=== PATIENT | female | born 1970 | race Caucasian/White ===

== ENCOUNTER 2016-10-10 14:36 | Emergency (ER) | payer SELFPAY ==
--- NOTE | 2016-10-10 15:25 | ER Document Report ---
HPI - HPI Pain Level: 2 Notes: Patient is a 46-year-old female presents the ED complaining of a laceration on her right medial fifth digit that occurred just prior to arrival today. Patient states that she was moving stuff out of a truck when she cut her finger on a sharp tool inside of a box. Patient states that she did have a tetanus 2 years ago. Patient states that she still able to move her finger and denies any numbness or tingling distally. Patient did clean it with alcohol. Patient has allergies to codeine and doxycycline. Patient only takes Paxil daily for her medications. She is a past medical history significant for anxiety/ depression, asthma. No other concerns or complaints at this time. Patient denies any MRSA history. Denies any headache, fever, URI, chest pain, palpitations, cough, shortness of breath, abdominal pain, nausea/vomiting with diarrhea, muscle paralysis/weakness, numbness/tingling, rash - ROS Notes: REVIEW OF SYSTEMS: CONSTITUTIONAL : Denies fever, chills, or sweats. Denies recent illness. EENT: Denies eye, ear, throat, or mouth pain or symptoms. Denies nasal or sinus congestion or discharge. Denies throat, tongue, or mouth swelling or difficulty swallowing. CARDIOVASCULAR: Denies chest pain. Denies palpitations or racing or irregular heart beat. Denies ankle edema. RESPIRATORY: Denies cough, cold, or chest congestion. Denies shortness of breath, difficulty breathing, or wheezing. GASTROINTESTINAL: Denies abdominal pain or distention. Denies nausea, vomiting , or diarrhea. Denies blood in vomitus, stools, or per rectum. Denies black, tarry stools. Denies constipation. GENITOURINARY: Denies difficulty urinating, painful urination, burning, frequency, blood in urine, or discharge. MUSCULOSKELETAL: Denies back or neck pain or stiffness. Denies joint pain or swelling. SKIN: see hpi NEUROLOGICAL: Denies confusion or altered mental status. Denies passing out or loss of consciousness. Denies dizziness or lightheadedness. Denies headache. Denies weakness or paralysis or loss of use of either side. Denies problems with gait or speech. Denies sensory loss, numbness, or tingling. Denies seizures. PSYCHIATRIC: Denies anxiety or stress. Denies depression, suicidal ideation, or homicidal ideation. ALL OTHER SYSTEMS REVIEWED AND NEGATIVE. Dictation was performed using [employer] voice recognition software - REPRODUCTIVE Reproductive: DENIES: : - DERM Skin Color: Normal Past Medical History - Social History Smoking Status: Never Smoker Family History: Reviewed & Not Pertinent Patient has suicidal ideation: No Patient has homicidal ideation: No Pulmonary Medical History: Reports: Hx Asthma Renal/ Medical History: Denies: Hx Peritoneal Dialysis Past Surgical History: Reports: Hx Cholecystectomy - Immunizations Hx Diphtheria, Pertussis, Tetanus Vaccination: Yes Vertical Provider Document - CONSTITUTIONAL Agree With Documented VS: Yes Notes: PHYSICAL EXAMINATION: GENERAL: Well-appearing, well-nourished and in no acute distress. LUNGS: Breath sounds clear to auscultation bilaterally and equal. No wheezes rales or rhonchi. HEART: Regular rate and rhythm without murmurs, rubs, gallops. Musculoskeletal: Rt 5th digit: FROM to passive/active. Strength 5+/5. Extremities: No cyanosis, clubbing, or edema b/l. Peripheral pulses 2+. Capillary refill less than 3 seconds. NEUROLOGICAL: Cranial nerves grossly intact. Normal speech, normal gait. Normal sensory, motor exams PSYCH: Normal mood, normal affect. SKIN: Rt 5th digit: + superficial irregular lac approx 1cm in length. Not deep or large separation. Minimally tender. N/V intact distal. Good perfusion to finger. No purulent discharge or erythema noted. - INFECTION CONTROL TRAVEL OUTSIDE OF THE [place] IN LAST 30 DAYS: No - RESPIRATORY O2 Sat by Pulse Oximetry: 99 Course - Re-evaluation Re-evalutation: 10/10/16 16:00 Patient is an afebrile, well-hydrated, 46-year-old female presents the ED with a superficial finger laceration to her right fifth lateral digit. Vitals are stable. PE otherwise unremarkable for any focal neurological or vascular deficits. No sutures required for this laceration. Wound was irrigated thoroughly with saline and cleansed with Shur-Clens. Appropriate approximation of the edges was successfully completed utilizing Steri-Strips and benzoin, while leaving a very small gap for any discharge. Wound dressing with bacitracin performed thereafter. Finger was then placed in a splint she is to utilize until the wound heals approximately 7-10 days. Extra Steri-Strips were provided to the patient to utilize as directed she had a Steri-Strip come off. Wound instructions otherwise as reviewed. Recheck with her PCM in 2-3 days. I will give her reflected Keflex to take as directed. Her tetanus was reported to be up-to-date within the last 2 years. Return to the ED with any worsening/ concerning symptoms as reviewed in discharge. Patient is in agreement. - Vital Signs Vital signs: Temp Pulse Resp BP Pulse Ox 98.2 F 93 18 144/87 H 99 10/10/16 14:42 10/10/16 14:42 10/10/16 14:42 10/10/16 14:42 10/10/16 14:42 Discharge - Discharge Clinical Impression: Finger laceration Qualifiers: Encounter type: initial encounter Finger: little finger Damage to nail status: without damage Foreign body presence: without foreign body Laterality: right Qualified Code(s): S61.216A - Laceration without foreign body of right little finger without damage to nail, initial encounter Condition: Stable Instructions: Antibiotic Ointment Protection ([facility]), Laceration Care ([facility]), Soap Cleansing ([facility]), Prophylactic Antibiotic ([facility]) Additional Instructions: Do not shower or bathe for 24 hours. After 24 hours she may shower but no submersion of the wound under water. Keep the original dressing on the wound for 24 hours unless the drainage stops through. Change the dressing daily thereafter x2-3 days and use a small amount of triple antibiotic ointment over the open wound. Return to the ED and/or your PCM in 2-3 days for recheck. Monitor for any signs of worsening pain or redness, streaks, abscess, purulent discharge, and/or fever. Return to the ED if noticing any of the above symptoms or as needed. Take medications as directed. Prescriptions: Cephalexin Monohydrate [Keflex 500 mg Capsule] 500 mg PO BID #20 capsule Forms: Elevated Blood Pressure Referrals: CORY NIETO FNP [Primary Care Provider] - Follow up in 3-5 days
[2016-10-10 16:41] VITALS: BP 124/74
== END 2016-10-10 16:41 | disposition home or self-care (01) ==
LOC: ER 14:36
DX: S61.216A Laceration without foreign body of right little finger without damage to nail, initial encounter (principal); W45.8XXA Other foreign body or object entering through skin, initial encounter
CPT/HCPCS: 99283

== ENCOUNTER 2017-07-01 19:32 | Emergency (ER) | payer SELFPAY ==
[2017-07-01] MEDS ORDERED: IPRATROPIUM/ALBUTEROL 0.5-2.5 MG/3 ML AMPUL NEB ONE (20:31)
[2017-07-01] MEDS ORDERED: DEXAMETHASONE 4 MG TABLET PO ONE (20:31)
--- NOTE | 2017-07-01 20:32 | RADIOLOGY REPORT (SQ) ---
EXAM DESCRIPTION: CHEST SINGLE VIEW COMPLETED DATE/TIME: 07/01/2017 8:23 pm REASON FOR STUDY: shortness of breath COMPARISON: 313 EXAM PARAMETERS: NUMBER OF VIEWS: One view. TECHNIQUE: Single frontal radiographic view of the chest acquired. RADIATION DOSE: NA LIMITATIONS: None. FINDINGS: LUNGS AND PLEURA: New parenchymal opacity at the right base. Superimposed on obstructive pulmonary disease. Left lung clear. MEDIASTINUM AND HILAR STRUCTURES: No masses. Contour normal. HEART AND VASCULAR STRUCTURES: Heart normal in size. Normal vasculature. BONES: No acute findings. HARDWARE: None in the chest. OTHER: No other significant finding. IMPRESSION: Right basilar pneumonitis superimposed on obstructive pulmonary disease. TECHNICAL DOCUMENTATION: JOB ID: [id number] [employer]- All Rights Reserved Reading location - IP/workstation name: [email or web address]
[2017-07-01] MEDS ORDERED: ALBUTEROL SULFATE HFA (90 MCG/PUFF) 200 PUFF/8.5 GM MDI IH ONE (20:35)
--- NOTE | 2017-07-01 20:36 | ER Document Report ---
ED General - General Chief Complaint: Asthma Exacerbation Stated Complaint: DIFFICULTY BREATHING Time Seen by Provider: 07/01/17 20:01 Notes: Patient is a 46 year old female with a past medical history of asthma who presents with shortness of breath. The patient reports that after inhaling fumes from cleaner housekeeping that her jumped on the floor she began to have severe coughing and difficulty breathing. She states that this got progressively worse after starting prompting her to come to the emergency department for further assessment. She reports that she is feels had similar symptoms with asthma exacerbations in the past. She tried her albuterol inhaler at home with some improvement. Nothing worsens her symptoms since onset. She denies any hospitalizations or intubations as an adult for her asthma. She has not seen her primary care doctor regarding today's concerns. She denies any fever or constitutional symptoms. TRAVEL OUTSIDE OF THE [place] IN LAST 30 DAYS: No - Related Data Allergies/Adverse Reactions: codeine [Codeine] Allergy (Unknown, Verified 07/01/17 19:33) doxycycline [Doxycycline] Allergy (Unknown, Verified 07/01/17 19:33) Past Medical History - General Information source: Patient - Social History Smoking Status: Current Every Day Smoker Frequency of alcohol use: None Drug Abuse: None Lives with: Spouse/Significant other Family History: Reviewed & Not Pertinent Pulmonary Medical History: Reports: Hx Asthma Renal/ Medical History: Denies: Hx Peritoneal Dialysis GI Medical History: Reports: Hx Gastroesophageal Reflux Disease Psychiatric Medical History: Reports: Hx Depression Past Surgical History: Reports: Hx Section - 1, Hx Cholecystectomy - Immunizations Hx Diphtheria, Pertussis, Tetanus Vaccination: Yes Review of Systems - Review of Systems Notes: Constitutional: Negative for fever. HENT: Negative for sore throat. Eyes: Negative for visual changes. Cardiovascular: Negative for chest pain. Respiratory: Positive for shortness of breath. Gastrointestinal: Negative for abdominal pain, vomiting or diarrhea. Genitourinary: Negative for dysuria. Musculoskeletal: Negative for back pain. Skin: Negative for rash. Neurological: Negative for headaches, weakness or numbness. 10 point ROS negative except as marked above and in HPI. Physical Exam - Vital signs Vitals: Temp Pulse Resp BP Pulse Ox 98.4 F 99 16 130/80 H 94 07/01/17 19:43 07/01/17 19:43 07/01/17 19:43 07/01/17 19:43 07/01/17 19:43 Interpretation: Normal Notes: PHYSICAL EXAMINATION: GENERAL: Well-appearing, well-nourished and in no acute distress. HEAD: Atraumatic, normocephalic. EYES: Pupils equal round and reactive to light, extraocular movements intact, sclera anicteric, conjunctiva are normal. ENT: nares patent, oropharynx clear without exudates. Moist mucous membranes. NECK: Normal range of motion, supple without lymphadenopathy LUNGS: Breath sounds clear to auscultation bilaterally and equal. Scant expiratory wheezing in all lung pedro HEART: Regular rate and rhythm without murmurs ABDOMEN: Soft, nontender, normoactive bowel sounds. No guarding, no rebound. No masses appreciated. EXTREMITIES: Normal range of motion, no pitting or edema. No cyanosis. NEUROLOGICAL: No focal neurological deficits. Moves all extremities spontaneously and on command. PSYCH: Normal mood, normal affect. SKIN: Warm, Dry, normal turgor, no rashes or lesions noted. Course - Re-evaluation Re-evalutation: 07/01/17 20:33 Patient presents with a mild exacerbation of their baseline asthma. Mild wheezing at time of presentation but vitals do not show significant hypoxemia or tachypnea. No retractions. Patient did clinically improve after receiving nebulizers here in the emergency department. Chest x-ray without evidence of an acute pneumonia. Does show mild pneumonitis which is consistent with the patient's report that her symptoms started after she inhaled cleaner housekeeping after her attempted on the floor. As this is just a pneumonitis currently there is no indication for antibiotic coverage. Patient able to ambulate without any respiratory distress. Based on patient's overall reassuring assessment, I believe they are stable for outpatient management with inhalers and she has received a dose of dexamethasone in the emergency department.. I do not suspect an acute alternative pathology at this time based on history and exam including acute pulmonary embolus, ACS, pneumothorax, or aortic dissection. At this time will discharge with return precautions and follow-up recommendations. Verbal discharge instructions given a the bedside and opportunity for questions given. Medication warnings reviewed. Patient is in agreement with this plan and has verbalized understanding of return precautions and the need for primary care follow-up in the next 24-72 hours. - Vital Signs Vital signs: Temp Pulse Resp BP Pulse Ox 98.0 F 94 18 118/83 95 07/01/17 21:12 07/01/17 21:12 07/01/17 21:12 07/01/17 21:12 07/01/17 21:12 - Diagnostic Test Radiology reviewed: Image reviewed, Reports reviewed Radiology results interpreted by me: 07/01/17 20:34 Chest x-ray: No acute infiltrate or pneumothorax. Right basilar pneumonitis Discharge - Discharge Clinical Impression: Pneumonitis due to fumes and vapors Asthma exacerbation Qualifiers: Asthma severity: mild Asthma persistence: intermittent Qualified Code(s): J45.21 - Mild intermittent asthma with (acute) exacerbation Condition: Good Disposition: HOME, SELF-CARE Additional Instructions: You were seen for an asthma exacerbation. Your symptoms improved with treatment here in the emergency department. Your symptoms were triggered by exposure to the cleaning chemicals and you actually have a area of inflammation in your lung due to this exposure. It is very important that you return to the emergency department immediately if you began to have worsening difficulty breathing that does not respond to your normal home nebulizers. Please also follow closely with your primary care physician. you should also return to emergency department if you develop fever greater than 101, persistent cough, persistent vomiting, pass out, or any other symptoms that are concerning to you. Referrals: CORY NIETO FNP [Primary Care Provider] - Follow up as needed
[2017-07-01 21:13] VITALS: BP 118/83
== END 2017-07-01 21:13 | disposition home or self-care (01) ==
LOC: ER 19:32
DX: T65.891A Toxic effect of other specified substances, accidental (unintentional), initial encounter (principal); J68.0 Bronchitis and pneumonitis due to chemicals, gases, fumes and vapors; R06.02 Shortness of breath; R05 Cough; Y92.9 Unspecified place or not applicable; F17.200 Nicotine dependence, unspecified, uncomplicated
CPT/HCPCS: 94640; 99284; 71045; J3490; J7620